=== PATIENT | female | born 1965 | race Caucasian/White ===

== ENCOUNTER 2017-02-14 13:02 | Emergency (ER) | payer BC ==
[~2017-02-14] VITALS: Ht 170.2 cm; Wt 61.5 kg
[~2017-02-14 13:02] MED LIST: MOTRIN IB200 MG PO; MULTIPLE VITAM1 EACH PO; SUPER B COMP1 TABLET PO; TYLENOL EXTRA500 MG PO; ZOLOFT50 MG PO
[2017-02-14 13:51] LABS: HEMATOCRIT 40.3 % (36.0-46.0); MCH 31.9 PG (29.0-34.0); MCHC 34.2 G/DL (30.0-36.0); MCV 93.3 FL (83-99); MEAN PLAT.VOLUME 9.5 uM^3 (9.5-12.4); PLATELET COUNT 195 K/uL (156-360); RBC DIS.WIDTH-CV 11.7 % (11.8-14.6); RBC DIS.WIDTH-SD 40.2 % (39-53); RED BLOOD COUNT 4.32 M/uL (3.80-5.20); WHITE BLOOD COUNT 8.8 K/uL (4.1-10.2)
[2017-02-14 13:59] LABS: CHLORIDE 106 mEq/L (99-109); POTASSIUM 3.9 mEq/L (3.7-5.4); SODIUM 140 mEq/L (136-147)
[2017-02-14 14:01] LABS: GLUCOSE 102 mg/dL (70-99)
[2017-02-14 14:02] LABS: ANION GAP 8 MEQ/L (2-14); PROTHROMBIN TIME 10.4 (9.2-11.2); PTT 25.6 (25-32)
[2017-02-14 14:05] LABS: GFR ESTIMATE (CALCULATED) > 59 mL/min/
[2017-02-14 14:06] LABS: UREA NITROGEN (BUN) 13 mg/dL (9-23)
[2017-02-14 17:56] VITALS: BP 106/65
== END 2017-02-14 17:30 | disposition home or self-care (01) ==
LOC: EME 13:02
PROVIDERS: Emergency Medicine
DX: S70.11XA Contusion of right thigh, initial encounter (principal); S13.9XXA Sprain of joints and ligaments of unspecified parts of neck, initial encounter; S50.11XA Contusion of right forearm, initial encounter; W55.12XA Struck by horse, initial encounter; Y93.K3 Activity, grooming and shearing an animal; M79.641 Pain in right hand
CPT/HCPCS: 70450; 71010; 72125; 73080; 73090; 73130; 73502; 73552; 80048; 85027; 85610; 85730; 86900; 86901; 93005; 99281; 99285; J2270; J2405; J7030